=== PATIENT | female | born 1985 | race African-American/Black ===

== ENCOUNTER 2017-12-09 18:25 | Emergency (ER) | payer OTHER ==
[~2017-12-09] VITALS: Ht 157.5 cm; Wt 70.3 kg
[2017-12-09 18:27] VITALS: BP 125/62
[2017-12-09] MEDS ORDERED: NAPROSYN500 MG PO (18:43)
[2017-12-09] MEDS ORDERED: NORFLEX100 MG PO (18:43)
== END 2017-12-09 19:14 | disposition home or self-care (01) ==
LOC: ER 18:25
DX: S16.1XXA Strain of muscle, fascia and tendon at neck level, initial encounter (principal); S29.012A Strain of muscle and tendon of back wall of thorax, initial encounter; Z98.890 Other specified postprocedural states; V49.00XA Driver injured in collision with unspecified motor vehicles in nontraffic accident, initial encounter; Y93.89 Activity, other specified; Y92.89 Other specified places as the place of occurrence of the external cause; Y99.8 Other external cause status